=== PATIENT | female | born 1985 | race Caucasian/White ===

== ENCOUNTER 2017-06-01 09:45 | Inpatient (IN) | payer OTHER ==
[2017-06-01] MEDS ORDERED: ceFAZolin 2 GM in Premix Bag 1 BAG IV ONE (10:00)
[2017-06-01] MEDS ORDERED: Carboprost Tromethamine 250 MCG/1 ML Amp IM ONE (10:00)
[2017-06-01] MEDS ORDERED: diphenhydrAMINE 50 MG/ML SDV IVPUSH PRN (10:00)
[2017-06-01] MEDS ORDERED: Naloxone 2 MG/2 ML Syringe IVPUSH PRN (10:00)
[2017-06-01] MEDS ORDERED: Misoprostol 400 MCG (4 X 100 MCG TAB) RECTAL PRN (10:00)
[2017-06-01] MEDS ORDERED: ePHEDrine 50 MG/ML SDV IVPUSH PRN (10:00)
[2017-06-01] MEDS ORDERED: Tranexamic Acid 1,000 MG in Sodium Chloride 0.9% 100 ML IV PRN (10:00)
[2017-06-01] MEDS ORDERED: Acetaminophen 325 MG Tab PO PRN (10:00)
[2017-06-01] MEDS ORDERED: Oxytocin/Normal Saline 30 UNIT/500 ML BAG IV SCH (10:00)
[2017-06-01] MEDS ORDERED: Ondansetron 4 MG/2 ML SDV IV PRN (10:00)
[2017-06-01] MEDS ORDERED: Methylergonovine 0.2 MG/1 ML Amp IM PRN (10:00)
[2017-06-01] MEDS ORDERED: Acetaminophen/oxyCODONE 325-5 MG Tab PO PRN (10:00)
[2017-06-01] MEDS ORDERED: Citric Acid/Sodium Citrate Solution 30 ML Cup PO ONE (10:00)
[2017-06-01] MEDS: Lactated Ringers 1,000 ML IV SCH ×4 (10:26→19:35)
[2017-06-01] MEDS ORDERED: Famotidine 20 MG/2 ML SDV ONE (12:26)
[2017-06-01] MEDS ORDERED: Oxytocin/Normal Saline 30 UNIT/500 ML BAG IV ONE (14:07)
[2017-06-01] MEDS: Simethicone 80 MG Tab.Chew PO SCH ×3 (15:57→22:32)
[2017-06-01] MEDS ORDERED: Ketorolac 30 MG/ML SDV IVPUSH ONE (16:04)
[2017-06-01] MEDS ORDERED: Morphine PF 1 MG/ML Amp IVPUSH ONE (16:04)
[2017-06-01] MEDS ORDERED: ePHEDrine 50 MG/ML SDV IV ONE (16:04)
[2017-06-01] MEDS ORDERED: Famotidine 20 MG/2 ML SDV IV ONE (16:04)
[2017-06-01] MEDS ORDERED: Ondansetron 4 MG/2 ML SDV IV ONE (16:04)
[2017-06-01] MEDS ORDERED: diphenhydrAMINE 50 MG/ML SDV IV ONE (16:04)
[2017-06-01] MEDS ORDERED: Dexamethasone 4 MG/ML SDV IV ONE (16:04)
[2017-06-01] MEDS ORDERED: Famotidine 20 MG/2 ML SDV IVPUSH ONE (17:38)
[2017-06-01] MEDS: Ketorolac 30 MG/ML SDV IVPUSH SCH ×2 (17:52→23:48)
[2017-06-01] MEDS: Docusate Sodium 100 MG Cap PO PRN (22:32)
[2017-06-02] MEDS: Lactated Ringers 1,000 ML IV SCH (03:48)
[2017-06-02] MEDS: Ketorolac 30 MG/ML SDV IVPUSH SCH (06:26)
[2017-06-02] MEDS: Docusate Sodium 100 MG Cap PO PRN ×2 (09:14→21:38)
[2017-06-02] MEDS: Acetaminophen/oxyCODONE 325-5 MG Tab PO PRN ×4 (09:14→21:38)
[2017-06-02] MEDS: Simethicone 80 MG Tab.Chew PO SCH ×4 (09:14→21:37)
--- NOTE | 2017-06-02 09:15 | OR ---
DATE: 06/01/2017 PREOPERATIVE DIAGNOSES: 1. Intrauterine at 37 and 1/7 weeks, confirmed with 21 and 1/7 weeks' ultrasound. 2. Preeclampsia without severe features. 3. Previous x1, request repeat low transverse . 4. Impaired glucose tolerance. 5. Group B Streptococcus negative. 6. History of severe preeclampsia and delivery secondary to preeclampsia with her last . 7. 2, para 0-1-0-1. POSTOPERATIVE DIAGNOSES: 1. Intrauterine at 37 and 1/7 weeks, confirmed with 21 and 1/7 weeks' ultrasound, delivered. 2. Preeclampsia without severe features. 3. Previous x1, request repeat low transverse . 4. Impaired glucose tolerance. 5. Group B Streptococcus negative. 6. History of severe preeclampsia and delivery secondary to preeclampsia with her last . 7. 2, para 0-1-0-1. 8. Cord wrapped around the body, reduced bluntly with delivery. PROCEDURE PERFORMED: NST followed by repeat low transverse . FREIGHT CHECKER: Tata Zapata MD. ANESTHESIA: Spinal. ESTIMATED BLOOD LOSS: 500 mL. IV FLUIDS: 600 mL of lactated Ringer's and 200 mL of Pitocin. URINE OUTPUT: 125 mL clear yellow. START: 1224 hours. UTERINE INCISION: 1227 hours. DELIVERY: 1228 hours. STOP: 1242 hours. FINDINGS: Female, scores 7 and 9, weight pending. DESCRIPTION OF PROCEDURE IN DETAIL: After proper consent was obtained, the patient was brought to the operating room, where spinal anesthetic was administered. A Pizano was placed in preop under sterile conditions. Abdomen was prepped and draped in the normal sterile fashion with the patient placed in supine position with left lateral tilt. A skin incision was then made over lower abdomen in transverse Pfannenstiel-type fashion over previous scar, this was carried down the fascia and scored in the midline. Subcutaneous tissue was raked laterally with Pelaez retractor, and fascial incision was then extended in transverse fashion using curved Camara's. Sunil clamps x2 were used to grasp the superior aspect of the fascia, and rectus muscles were dissected from the fascia using sharp and blunt technique. In a similar fashion, Sunil clamps x2 were used to grasp the inferior portion of the incision, and rectus and pyramidalis muscles were dissected from the fascia using sharp and blunt technique. Rectus muscles were in the midline with blunt technique. Abdominal cavity was entered in blunt technique. Incision was extended superiorly and inferiorly in blunt technique. Tunde O large retractor was then introduced and used. Vesicouterine peritoneum was identified and incised in a transverse fashion with Metzenbaum scissors, and bladder flap was made digitally. A curvilinear incision was made on the lower uterine segment at 1227 hours. Uterus was then entered sharply. Clear fluid returned. The uterine incision was then extended in transverse fashion using blunt technique. vertex was then delivered through the incision, followed by rest of the with the cord wrapped around the body, reduced bluntly with delivery. Mouth and nares were suctioned. Cord was doubly clamped and cut, and the infant was brought over to Team. Then, approximately 10 mL cord blood was obtained for labs. Placenta was then delivered with gentle cord traction and fundal massage. Uterine cavity was cleared of all blood clots and debris with lap sponge. Urias clamps were used to grasp the uterine incision. This was closed in a running locked fashion and tied at lateral margins with 1-0 Vicryl. First inspection of the uterine incision revealed hemostasis. Tunde O retractor was then removed. The paracolic gutters were then cleared of all blood clots and debris with lap sponge. Anterior cul-de-sac was irrigated copiously, and all blood clots and debris removed. Second and final inspection of the uterine incision and anterior cul-de-sac revealed hemostasis. Rectus muscles were then reapproximated in midline with [id number]-[id number] stitch using 1-0 Vicryl. Subfascial tissue was found to be hemostatic. Fascia was closed in a running fashion and tied at lateral margin with 0 looped PDS. Subcutaneous tissue was irrigated copiously, hemostasis reassured, skin was reapproximated with medium porfirio. Sterile Aquacel dressing applied. Uterine fundus was firm and massaged at the conclusion of the case -1 below umbilicus. No immediate complications were noted. Sponge, lap, and needle counts were correct. The patient received 2 g of Ancef preoperatively, Pitocin per protocol, and will receive Toradol at the conclusion of the case for pain control. Mother and infant are currently stable at the time of dictation. [facility] /[id number]
--- NOTE | 2017-06-02 09:45 | OBOUT ---
DATE: 06/01/2017 DATE AND TIME OF NST: 06/01/2017 at 10:40 to noon. REASON FOR NST: 1. Intrauterine at 37-1/7 weeks confirmed with 21-1/7 weeks' ultrasound. 2. Preeclampsia without severe features. 3. Previous section x1, requests repeat low transverse section. 4. Impaired glucose tolerance. 5. Group B Streptococcus negative. 6. History of severe preeclampsia and delivery secondary to this preeclampsia with last . 7. 2, para 0-1-0-1. NST INTERPRETATION: During this time period, heart tone baseline is approximately 155 to 160 and there are at least two 15 x 15 beat per minute accelerations, making this strip reactive. It is also noted to be reassuring. Tocometer reveals potential 1 contraction, not felt by the patient. ASSESSMENT: 1. Nonstress test, reactive and reassuring. 2. Tocometer with 1 contraction, not felt by the patient. PLAN: Please see admit history and physical done and scanned through [employer] and updated today. For this, records were called for, reviewed, and supplemented by the patient's history, as well as review of systems fully reviewed and felt to be noncontributory otherwise. Today, she denies any headaches, visual changes, or upper abdominal pain. We will proceed to the OR as soon as crew is ready and available. Start time anticipated at noon. [facility] /[id number]
[2017-06-02] MEDS: Prenatal Multivitamin with Calcium/Folic Acid/Iron Tab PO SCH (10:24)
--- NOTE | 2017-06-02 13:21 | PN ---
DATE: 06/02/2017 Postop day #1, status post repeat low transverse . SUBJECTIVE: The patient is tolerating p.o., ambulating, Pizano is in place, passing flatus. Pain is under control. OBJECTIVE: Vital Signs: Temperature 97.8, heart rate 74, blood pressure 104/60, respiratory rate 18. Lungs: Clear to auscultation bilaterally. Heart: S1 and S2. Regular rate and rhythm. Pelvic: Firm uterus around -1 below umbilicus. Aquacel dressing dry and intact. NOLAN hose and SCDs are on. LABORATORY DATA: Pending CBC. ASSESSMENT: Postop day #1, status post repeat low-transverse , complicated by preeclampsia without severe features, which is resolving. PLAN: We will continue to follow clinically and closely. Consider stopping the Pizano today and following for symptoms otherwise. I did discuss with the patient plan on discharge on Monday with Dr. Booth covering in my absence. [facility] /[id number]
[2017-06-02] MEDS: Ibuprofen 800 MG Tab PO PRN ×2 (13:38→21:40)
[2017-06-03] MEDS: Acetaminophen/oxyCODONE 325-5 MG Tab PO PRN ×4 (01:50→21:15)
[2017-06-03] MEDS: Ibuprofen 800 MG Tab PO PRN ×3 (04:59→22:11)
[2017-06-03] MEDS: Simethicone 80 MG Tab.Chew PO SCH ×4 (10:01→22:13)
[2017-06-03] MEDS: Ferrous Sulfate 325 MG Tab PO SCH (10:01)
[2017-06-03] MEDS: Prenatal Multivitamin with Calcium/Folic Acid/Iron Tab PO SCH (10:01)
[2017-06-03] MEDS: Docusate Sodium 100 MG Cap PO PRN (21:15)
--- NOTE | 2017-06-03 22:48 | PN ---
DATE: 06/03/2017 SUBJECTIVE: Carey is doing very well today. Today is postoperative day #2. Dr. Wright has thoroughly discussed her with me previously. She denies any headache or visual symptoms today. She does have flatus and no nausea or vomiting. She has been tolerating her regular diet. She has no problems urinating whatsoever. She does have a slight amount of incisional discomfort as we would expect. OBJECTIVE: Vital Signs: Her blood pressure is 136/69, pulse is 88, temperature 98.6. Abdomen: Soft and nontender. The dressing is dry. Lungs: Clear to A. There is negative CVA tenderness bilaterally. Extremities: Negative including negative Homans sign. IMPRESSION: Stable postoperative course with repeat section 2 days ago with history of preeclampsia. PLAN: She will do progressive ambulation. We have preliminarily discussed with her some of her discharge instructions, which we will review again tomorrow. She will keep me or the nurses informed if any headaches or visual symptoms or any other unusual symptoms. [facility] /[id number]
[2017-06-04] MEDS: Acetaminophen/oxyCODONE 325-5 MG Tab PO PRN ×2 (03:13→09:20)
[2017-06-04] MEDS: Simethicone 80 MG Tab.Chew PO SCH (09:20)
[2017-06-04] MEDS: Ferrous Sulfate 325 MG Tab PO SCH (09:20)
[2017-06-04] MEDS: Docusate Sodium 100 MG Cap PO PRN (09:20)
[2017-06-04] MEDS: Prenatal Multivitamin with Calcium/Folic Acid/Iron Tab PO SCH (09:20)
[2017-06-04] MEDS: Ibuprofen 800 MG Tab PO PRN (09:21)
[2017-06-04 09:56] VITALS: BP 138/82
--- NOTE | 2017-06-05 07:54 | DISCH ---
HISTORY OF PRESENT ILLNESS: This patient is a very pleasant, 31-year-old, 2, now para [address] Wright has thoroughly discussed with me previously. She did have preeclampsia without severe features towards the end of this . She also has had one previous section. She was currently at 37-1/2 weeks' gestation and admitted for repeat section. Please also see Dr. Wright's admission history and physical as well as his operative report. The patient has done very well in the postoperative period. She is discharged home today on postoperative day #3. She does not have any headache today. She denies any visual symptoms. She has been ambulating well and has the normal return of bowel and bladder function. Vital signs have remained stable, and as mentioned above, her blood pressure was 138/82 with no headache. She remains afebrile as well. She is pumping her breasts and preserving the breast milk to feed her infant, that is going well for her. Also, on today's examination, her dressing remains dry and intact. Her extremities are negative including negative Piedad sign bilaterally. The abdomen is soft and nontender. The routine followup instructions were given to her including instructions to call us at once if any excess pain; excess bleeding; breast, leg, pelvic, or incisional problems, whatsoever; also, if there is any fever or excess bleeding, she was instructed to contact us. We have also asked her to avoid any intercourse or heavy lifting or strenuous physical activity for approximately 6 weeks. The walking of stairs is permitted. She was asked to not drive a car for approximately 2 weeks. OTHER INSTRUCTIONS: She was encouraged to do progressive gradual ambulation every day and to maintain healthy well-balanced nutritional measures as well as adequate hydration. DISCHARGE MEDICATIONS: Dr. Wright has provided a Percocet prescription for her, 5/325 mg, #30, with instructions to take 1 to 2 every 6 hours p.r.n. pain and also oral iron sulfate p.o. b.i.d. for 6 weeks. She also will use ibuprofen or Motrin p.r.n. FOLLOWUP APPOINTMENT: She will see Dr. Wright and also bring her baby in for that visit as well on this coming 06/06/2017, in the clinic. She certainly will call before that time if any questions or problems, whatsoever. DIET: Regular. CONDITION ON DISCHARGE: Good. FINAL DIAGNOSES: 1. at 37-1/2 weeks' gestation, delivered. 2. Preeclampsia without severe features. 3. History of previous section. OPERATIONS AND PROCEDURES: Repeat section, low transverse, by Dr. Fabio Wright on 06/01/2017. [facility] /[id number]
== END 2017-06-04 12:50 | disposition home or self-care (01) | DRG 766 ==
LOC: UNDOADMOB 09:45 → DL.OB 09:45 → INTOOBSV 10:28 → OBSVTOIN 10:28 → DL.OB 12:28 → OBSVTOIN 12:28
PROVIDERS: ADMIT Family Medicine; ATTEND Family Medicine
PROC: 10D00Z1 Extraction of Products of Conception, Low, Open Approach (ICD-10-PCS; principal; 2017-06-01)
DX: O14.94 Unspecified pre-eclampsia, complicating childbirth (principal); Z3A.37 37 weeks gestation of pregnancy; Z37.0 Single live birth; O34.211 Maternal care for low transverse scar from previous cesarean delivery; N85.8 Other specified noninflammatory disorders of uterus; Z88.8 Allergy status to other drugs, medicaments and biological substances
CPT/HCPCS: 36415; 85027; 86850; 86900; 86901; A9270-GY; J0690; J1100; J1200; J1885; J2274; J2405; J2590; J7120; S0028